=== PATIENT | female | born 1940 | race Caucasian/White ===

== ENCOUNTER 2022-04-20 14:44 | Emergency (ER) | payer BC ==
[~2022-04-20] VITALS: Ht 172.7 cm; Wt 68.0 kg
[2022-04-20 14:50] VITALS: BP_SYST 143
--- NOTE | 2022-04-20 15:15 | NUR ---
PT TO ROOM 07, EKG DONE BY EMT ANGELA. PT VSS. NAD NOTED. CARE ENDORSED TO DERIC MCNAMARA. BOTH SIDE RAILS UP.
--- NOTE | 2022-04-20 15:26 | NUR ---
ER at bedside examining patient.
[2022-04-20 16:17] LABS: BASOPHILS % (AUTO) 0.5 % (0.0-2.0); EOSINOPHILS # (AUTO) 0.1 K/uL (0.0-0.4); HEMATOCRIT 35.4 % (36-48); HEMOGLOBIN 12.1 g/dL (12.0-16.0); LYMPHOCYTES # (AUTO) 1.9 K/uL (1.0-5.5); LYMPHOCYTES % (AUTO) 37.3 % (20.5-51.5); MEAN CORPUSCULAR HEMOGLOBIN 32 pg (27-31); MEAN CORPUSCULAR HGB CONC 34 % (32-36); MEAN CORPUSCULAR VOLUME 94 fL (79.0-98.0); MONOCYTES # (AUTO) 0.5 K/uL (0.0-1.0); MONOCYTES % (AUTO) 9.6 % (1.7-9.3); NEUTROPHILS # (AUTO) 2.5 K/uL (1.8-7.7); NEUTROPHILS % (AUTO) 50.6 % (40.0-70.0); PLATELET COUNT (AUTO) 172 K/uL (130-430); RED BLOOD CELL COUNT(AUTO) 3.76 MIL/uL (4.2-6.2); RED CELL DISTRIBUTION WIDTH 13.5 % (9.0-15.0)
[2022-04-20 16:31] LABS: ANION GAP 8 (5-15); CALCIUM 9.2 mg/dL (8.4-11.0); CHLORIDE 102 mmol/L (98-107); CREATININE 0.69 mg/dL (0.55-1.30); GLUCOSE 103 mg/dL (70-99); UREA NITROGEN, BLOOD 20 mg/dL (8-21)
[2022-04-20 16:41] LABS: ALANINE AMINOTRANSFERASE 26 U/L (12-78); ALBUMIN 3.8 g/dL (3.4-4.8); ASPARTATE AMINOTRANSFERASE 24 U/L (10-37); TOTAL BILIRUBIN 0.6 mg/dL (0.0-1.0)
--- NOTE | 2022-04-20 16:45 | NUR ---
PT BROUGHT IN BY SON, AMBULATED WITH CANE TO BED 7. PT A&Ox4, PT'S SON REPORTS THAT PT CALLED HIM AND STATED THAT SHE WAS DIZZY AND FELT LIKE SHE WAS FALLING TO THE LEFT. PT HAS A HISTORY OF HTN. PT C/O NAUSEA BUT NOT EPISODE OF VOMITING.
--- NOTE | 2022-04-20 17:05 | NUR ---
Patient given written and verbal discharge instructions and verbalizes understanding. ER DR PATTERSON discussed with patient the results and treatment provided. Patient in stable condition. ID arm band removed. Patient educated on pain management and to follow up with PMD. Pain Scale 0/10. Opportunity for questions provided and answered. Medication side effect fact sheet provided.
[2022-04-20 17:21] VITALS: BP_SYST 166
== END 2022-04-20 17:20 | disposition home or self-care (01) ==
LOC: SED 14:44
DX: H43.392 Other vitreous opacities, left eye (principal); R11.0 Nausea; H57.12 Ocular pain, left eye; I10 Essential (primary) hypertension; Z88.0 Allergy status to penicillin; Z79.899 Other long term (current) drug therapy
CPT/HCPCS: 36415; 80053; 83880; 84484; 85025; 93005; 99284